=== PATIENT | male | born 1965 | race Caucasian/White ===

== ENCOUNTER → 2021-06-30 | Outpatient (CLI) | payer OTHER ==
[~2021-06-30] MED LIST: BUSPAR 10MG10 MG PO; DESYREL 50 MG T50 MG PO; FENOFIBRATE160 MG PO; FISH OIL 1,0001 EAC3 PO; LOPERAMIDE2 M1 PO; OMEPRAZOLE20 MG PO; VOLTAREN EC 5050 MG PO; ZOCOR40 MG PO
== END ==
LOC: KOH-I 09:54
DX: M62.121 Other rupture of muscle (nontraumatic), right upper arm (principal); S56.511A Strain of other extensor muscle, fascia and tendon at forearm level, right arm, initial encounter
CPT/HCPCS: 73221

== ENCOUNTER → 2021-11-29 | Outpatient (CLI) | payer OTHER | LOC: KOH-I 12:42 | DX: Z87.891 Personal history of nicotine dependence (principal); R91.1 Solitary pulmonary nodule | CPT/HCPCS: 71271 ==